=== PATIENT | male | born 1955 | race Two or more races ===

== ENCOUNTER 2019-12-24 11:30 | Inpatient (IN) | payer OTHER ==
[~2019-12-24] VITALS: Ht 180.3 cm; Wt 77.1 kg
[2020-01-07] MEDS ORDERED: ATORVASTATIN CA20 MG PO (15:29)
[2020-01-07] MEDS ORDERED: METOPRO PO (15:30)
[2020-01-07] MEDS ORDERED: LEVOTHYROXINE88 MCG PO (15:30)
[2020-01-07] MEDS ORDERED: VALSARTAN320 MG PO (15:30)
[2020-01-07] MEDS ORDERED: LEVAQUIN750 MG PO (15:31)
[2020-01-09] MEDS ORDERED: TOPROL XL25 M1 (09:38)
== END 2020-01-12 19:29 | disposition home or self-care (01) | DRG 654 ==
LOC: O/R 01-09 06:07 → SURH 01-09 09:00
PROVIDERS: ADMIT Colon & Rectal Surgery; ATTEND Colon & Rectal Surgery
PROC: 0DTP4ZZ Resection of Rectum, Percutaneous Endoscopic Approach (ICD-10-PCS; 2020-01-09)
PROC: 0DBN4ZZ Excision of Sigmoid Colon, Percutaneous Endoscopic Approach (ICD-10-PCS; 2020-01-09)
PROC: 0TQB4ZZ Repair Bladder, Percutaneous Endoscopic Approach (ICD-10-PCS; principal; 2020-01-09 10:30)
PROC: BW2GYZZ Computerized Tomography (CT Scan) of Pelvic Region using Other Contrast (ICD-10-PCS; 2020-01-12)
DX: N32.1 Vesicointestinal fistula (principal); N17.9 Acute kidney failure, unspecified; I13.10 Hypertensive heart and chronic kidney disease without heart failure, with stage 1 through stage 4 chronic kidney disease, or unspecified chronic kidney disease; N18.3 Chronic kidney disease, stage 3 (moderate); E03.9 Hypothyroidism, unspecified; D63.1 Anemia in chronic kidney disease; K57.30 Diverticulosis of large intestine without perforation or abscess without bleeding